=== PATIENT | female | born 1995 | race Caucasian/White ===

== ENCOUNTER 2017-05-03 11:05 | Emergency (ER) | payer MEDICAID ==
[~2017-05-03] VITALS: Ht 157.5 cm; Wt 84.5 kg
[2017-05-03 11:22] VITALS: TEMP 98.3
[2017-05-03] MEDS ORDERED: ZOLOFT 25MG25 MG PO (11:25)
[2017-05-03 13:16] LABS: INFLUENZA A NEGATIVE; INFLUENZA B NEGATIVE
[2017-05-03 13:30] VITALS: BP 112/70; PULSE 99
== END 2017-05-03 13:49 | disposition home or self-care (01) ==
LOC: COL.ER 11:05
PROVIDERS: Emergency Medicine
DX: O99.513 Diseases of the respiratory system complicating pregnancy, third trimester (principal); J06.9 Acute upper respiratory infection, unspecified; Z3A.33 33 weeks gestation of pregnancy

== ENCOUNTER 2017-06-10 14:59 | Outpatient (CLI) | payer MEDICAID ==
[~2017-06-10] VITALS: Ht 157.5 cm; Wt 86.8 kg
[~2017-06-10 14:59] MED LIST: ZOLOFT 25MG25 MG PO
[2017-06-10 15:00] VITALS: BP 112/66; PULSE 125; TEMP 97.5
[2017-06-10 15:20] VITALS: BP 112/66; PULSE 125; TEMP 97.5
[2017-06-10] MEDS ORDERED: PRENATAL MVI (15:25)
[2017-06-10 16:17] VITALS: BP 94/68; PULSE 120
[2017-06-10 17:01] VITALS: BP 102/57; PULSE 74
== END 2017-06-10 17:10 | disposition home or self-care (01) ==
LOC: LDRO 14:59
DX: O62.9 Abnormality of forces of labor, unspecified (principal); Z3A.00 Weeks of gestation of pregnancy not specified

== ENCOUNTER 2017-06-10 22:39 | Inpatient (IN) | payer MEDICAID ==
[~2017-06-10] VITALS: Ht 157.5 cm; Wt 86.8 kg
[~2017-06-10 22:39] MED LIST changes: +PRENATAL MVI
[2017-06-10 23:15] VITALS: BP 112/72; PULSE 97; TEMP 98.1
[2017-06-10 23:56] LABS: BASO % 0.3 % (0.0-2.0); EOS # 0.1 (0.0-0.7); EOS % 0.9 % (0-4.0); GRAN # 8.4 (1.4-6.5); GRAN % 72.5 % (42.2-75.2); HEMATOCRIT 29.6 % (37.0-47.0); HEMOGLOBIN 9.6 g/dl (12.5-16.0); LYMPH # 2.1 (1.2-3.4); LYMPH % 18.5 % (20.0-51.0); MEAN CELL VOLUME 85 fl (80.0-100.0); MEAN CORPUSCULAR HEMOGLOBIN 28 pg (27.0-31.0); MEAN CORPUSCULAR HGB CONC 32 g/dl (33.0-37.0); MEAN PLATELET VOLUME 9.4 fl (7.4-10.4); MONO # 0.8 (0.1-0.6); MONO % 6.8 % (1.7-9.3); PLATELET COUNT 284 K/mm3 (130-400); RED BLOOD COUNT 3.48 M/mm3 (4.10-5.30); REDCELL DISTRIBUTION WIDTH-CV 15.9 % (11.5-14.5)
[2017-06-11] VITALS (23 sets, daily range): BP systolic 81–149; BP diastolic 42–71; PULSE 76–127; TEMP 97.7–98.7
[2017-06-12 06:54] LABS: HEMATOCRIT 26.1 % (37.0-47.0); HEMOGLOBIN 8.4 g/dl (12.5-16.0)
[2017-06-12 08:00] VITALS: BP 101/62; PULSE 73; TEMP 97.9
[2017-06-12] MEDS ORDERED: IBU600 MG PO (09:52)
[2017-06-12] MEDS ORDERED: FERROUSAL325 MG PO (09:52)
[2017-06-12] MEDS ORDERED: PERCOCET 325 MG1 TA2 PO (09:52)
[2017-06-12 13:00] VITALS: BP 85/41; PULSE 73; TEMP 98.2
[2017-06-12 16:55] VITALS: BP 94/47; PULSE 75; TEMP 97.7
[2017-06-12 19:45] VITALS: BP 113/65; PULSE 69; TEMP 98.3
[2017-06-13 06:20] VITALS: BP 108/63; PULSE 73; TEMP 98.8
[2017-06-13] MEDS ORDERED: SENOKOT S 50 MG1 TAB PO (07:32)
== END 2017-06-13 13:10 | disposition home or self-care (01) | DRG 775 ==
LOC: LDRO 22:39 → OB 23:09 → LDR 23:09 → OB 06-11 05:00
PROVIDERS: Obstetrics & Gynecology
PROC: 10E0XZZ Delivery of Products of Conception, External Approach (ICD-10-PCS; principal; 2017-06-11)
PROC: 0KQM0ZZ Repair Perineum Muscle, Open Approach (ICD-10-PCS; 2017-06-11)
DX: O36.0130 Maternal care for anti-D [Rh] antibodies, third trimester, not applicable or unspecified (principal); O99.02 Anemia complicating childbirth; D64.9 Anemia, unspecified; O99.334 Smoking (tobacco) complicating childbirth; F17.210 Nicotine dependence, cigarettes, uncomplicated; O70.1 Second degree perineal laceration during delivery; Z3A.39 39 weeks gestation of pregnancy; Z37.0 Single live birth
CPT/HCPCS: J1200; J2405; J2540; J2590; J2791; J2795; J7120

== ENCOUNTER 2018-04-03 21:08 | Emergency (ER) | payer SELFPAY ==
[~2018-04-03] VITALS: Ht 157.5 cm; Wt 79.5 kg
[~2018-04-03 21:08] MED LIST changes: +FERROUSAL325 MG PO; +IBU600 MG PO; +PERCOCET 325 MG1 TA2 PO; +SENOKOT S 50 MG1 TAB PO
[2018-04-03 21:20] VITALS: BP 141/80; TEMP 98.8
[2018-04-03] MEDS ORDERED: ZOFRAN ODT4 MG PO (21:48)
[2018-04-04 00:12] VITALS: PULSE 90
== END 2018-04-04 00:15 | disposition home or self-care (01) ==
LOC: COL.ER 21:08
DX: A08.4 Viral intestinal infection, unspecified (principal); Z79.1 Long term (current) use of non-steroidal anti-inflammatories (NSAID)
CPT/HCPCS: J2405

== ENCOUNTER 2018-07-08 14:23 | Emergency (ER) | payer SELFPAY ==
[~2018-07-08] VITALS: Ht 157.5 cm; Wt 75.5 kg
[~2018-07-08 14:23] MED LIST changes: +ZOFRAN ODT4 MG PO
[2018-07-08 14:26] VITALS: BP 119/68; TEMP 97
[2018-07-08] MEDS ORDERED: ZYRTEC 10MG10 MG PO (14:35)
[2018-07-08] MEDS ORDERED: PROAIR HFA0.09 MG/AC IH (15:18)
[2018-07-08] MEDS ORDERED: PREDNISONE20 MG PO (15:18)
[2018-07-08 16:01] VITALS: PULSE 101
== END 2018-07-08 16:01 | disposition home or self-care (01) ==
LOC: COL.ER 14:23
DX: J40 Bronchitis, not specified as acute or chronic (principal); F17.210 Nicotine dependence, cigarettes, uncomplicated; Z90.89 Acquired absence of other organs
CPT/HCPCS: J7512

== ENCOUNTER 2018-07-18 11:02 | Emergency (ER) | payer SELFPAY ==
[~2018-07-18] VITALS: Ht 157.5 cm; Wt 75.5 kg
[~2018-07-18 11:02] MED LIST changes: +PREDNISONE20 MG PO; +PROAIR HFA0.09 MG/AC IH; +ZYRTEC 10MG10 MG PO
[2018-07-18 11:26] VITALS: TEMP 98.4
[2018-07-18 12:01] LABS: COLLECTION METHOD CLEAN CATCH
[2018-07-18 12:06] LABS: BASO % 0.2 % (0.0-2.0); EOS % 0.3 % (0-4.0); GRAN # 10.1 (1.4-6.5); HEMATOCRIT 43.6 % (37.0-47.0); HEMOGLOBIN 14.6 g/dl (12.5-16.0); LYMPH # 0.9 (1.2-3.4); LYMPH % 7.9 % (20.0-51.0); MEAN CELL VOLUME 85 fl (80.0-100.0); MEAN CORPUSCULAR HEMOGLOBIN 28 pg (27.0-31.0); MEAN CORPUSCULAR HGB CONC 34 g/dl (33.0-37.0); MEAN PLATELET VOLUME 9.4 fl (7.4-10.4); MONO # 0.6 (0.1-0.6); MONO % 5.1 % (1.7-9.3); PLATELET COUNT 294 K/mm3 (130-400); RED BLOOD COUNT 5.14 M/mm3 (4.10-5.30); REDCELL DISTRIBUTION WIDTH-CV 13.8 % (11.5-14.5)
[2018-07-18 12:09] LABS: MUCOUS Present /lpf; PH 7 (5-8); URINE APPEARANCE Hazy; URINE BACTERIA None Seen /hpf; URINE BILIRUBIN Negative (NEGATIVE); URINE BLOOD Negative (NEGATIVE); URINE COLOR Yellow; URINE GLUCOSE Negative (NEGATIVE); URINE KETONE Negative (NEGATIVE); URINE LEUKOCYTE ESTERASE Trace (NEGATIVE); URINE NITRATE Negative (NEGATIVE); URINE PROTEIN(semi-quant) Negative (NEGATIVE); URINE RBC 0-2 /hpf; URINE UROBILINOGEN Negative (NEGATIVE)
[2018-07-18 12:18] LABS: ALBUMIN 4.1 gm/dL (3.5-5.0); BILIRUBIN,TOTAL 2.6 mg/dL (0.0-1.0); C-REACTIVE PROTEIN 0.5 mg/dL (0.0-0.9); CREATININE, serum 0.63 (0.52-1.25); TOTAL PROTEIN 7.1 gm/dL (6.4-8.2)
[2018-07-18] MEDS ORDERED: ZOFRAN ODT4 MG PO (12:48)
[2018-07-18] MEDS ORDERED: CEPHALEXIN500 M1 PO (12:48)
[2018-07-18 13:00] VITALS: BP 110/62; PULSE 82
== END 2018-07-18 13:03 | disposition home or self-care (01) ==
LOC: COL.ER 11:02
PROVIDERS: Physician Assistant
DX: K52.9 Noninfective gastroenteritis and colitis, unspecified (principal); N39.0 Urinary tract infection, site not specified; F17.210 Nicotine dependence, cigarettes, uncomplicated

== ENCOUNTER 2019-01-09 15:56 | Emergency (ER) | payer SELFPAY ==
[~2019-01-09] VITALS: Ht 157.5 cm; Wt 66.6 kg
[~2019-01-09 15:56] MED LIST changes: +CEPHALEXIN500 M1 PO
[2019-01-09 16:06] VITALS: TEMP 98.3
[2019-01-09] MEDS ORDERED: CLEOCIN HC150 MG/CAP PO (16:37)
[2019-01-09 16:48] VITALS: BP 128/87; PULSE 82
== END 2019-01-09 16:55 | disposition home or self-care (01) ==
LOC: COL.ER 15:56
DX: K02.9 Dental caries, unspecified (principal); F17.210 Nicotine dependence, cigarettes, uncomplicated; Z90.49 Acquired absence of other specified parts of digestive tract

== ENCOUNTER 2019-04-25 21:06 | Emergency (ER) | payer SELFPAY ==
[~2019-04-25] VITALS: Ht 157.5 cm; Wt 65.9 kg
[~2019-04-25 21:06] MED LIST changes: +CLEOCIN HC150 MG/CAP PO
[2019-04-25 21:18] VITALS: BP 128/76; PULSE 86; TEMP 97.9
== END 2019-04-25 21:25 | disposition left against medical advice (07) ==
LOC: COL.ER 21:06
DX: K08.89 Other specified disorders of teeth and supporting structures (principal)

== ENCOUNTER 2023-12-24 08:09 | Inpatient (IN) | payer MEDICAID ==
[~2023-12-24] VITALS: Ht 154.9 cm; Wt 64.9 kg
[~2023-12-24 08:09] MED LIST changes: +AMOXICILLIN 8751 TAB PO; +DIFLUCAN150 MG PO; +NORCO 325 MG-51 TAB PO; +PEN-VEE K500 MG PO; +ROXICODONE 55 MG/TAB PO; +ZOFRAN 4MG T4 MG/TAB PO
[2023-12-24] MEDS ORDERED: NS 1,000 ML IV ONE (09:15)
[2023-12-24 09:29] LABS: BASO % 0.2 % (0.0-2.0); EOS # 0.1 K/mm3 (0.0-0.7); EOS % 0.8 % (0.0-4.0); GRAN # 9.5 K/mm3 (1.4-6.5); HEMATOCRIT 39.1 % (37.0-47.0); HEMOGLOBIN 13.3 g/dl (12.5-16.0); LYMPH # 1.5 K/mm3 (1.2-3.4); LYMPH % 12.9 % (20.0-51.0); MEAN CELL VOLUME 87 fl (80.0-100.0); MEAN CORPUSCULAR HEMOGLOBIN 30 pg (27-31); MEAN CORPUSCULAR HGB CONC 34 g/dl (33.0-37.0); MEAN PLATELET VOLUME 9.9 fl (7.4-10.4); MONO # 0.8 K/mm3 (0.1-0.6); MONO % 6.8 % (1.7-9.3); PLATELET COUNT 262 K/mm3 (130-400); RED BLOOD COUNT 4.49 M/mm3 (4.10-5.30); REDCELL DISTRIBUTION WIDTH-CV 13.1 % (11.5-14.5)
[2023-12-24 09:47] LABS: BILIRUBIN,TOTAL 2.2 mg/dL (0.2-1.2); CALCIUM 9.1 mg/dL (8.4-10.2); CREATININE, serum 0.68 mg/dL (0.57-1.11); TOTAL PROTEIN 6.9 g/dl (6.2-8.1)
[2023-12-24] MEDS ORDERED: Iohexol 300 - 100 ML VIAL IV ONE (10:04)
[2023-12-24] MEDS ORDERED: NS 100 ML IV SCH (10:05)
[2023-12-24] MEDS ORDERED: fentaNYL 50 MCG/ML 2 ML VIAL IV ONE (11:00)
[2023-12-24] MEDS ORDERED: INDERAL 20MG20 MG PO (11:45)
[2023-12-24] MEDS ORDERED: LEXAPRO 10MG10 MG PO (11:46)
[2023-12-24 13:00] VITALS: BP_SYST 97
[2023-12-24] MEDS ORDERED: Morphine 4 MG/ML VIAL IV PRN (13:45)
[2023-12-24] MEDS ORDERED: Ondansetron 4 MG/2 ML VIAL IV PRN (13:45)
[2023-12-24] MEDS ORDERED: Acetaminophen 500 MG TAB PO PRN (13:45)
[2023-12-24] MEDS ORDERED: Polyethylene Glycol 3350 17 GM PDS PO PRN (13:45)
[2023-12-24] MEDS ORDERED: NS 1,000 ML IV SCH (13:45)
--- NOTE | 2023-12-24 13:55 | NUR ---
Vancomycin Initial Dosing Pharmacy Note Ordering provider: Carolyn Lott R., MD Indication/duration: SSTI Relevant comorbidities: LABS: Recommendation: 1.25 GRAMS EVERY 8 HOURS Maintenance dose: 1.25 grams every 8 hours Trough goal: 10-15 ug/mL PHARMACY TO CHECK TROUGH AFTER 4TH DOSE OF REGIMEN
[2023-12-24 13:57] VITALS: BP 97/63; PULSE 72; TEMP 99.2
--- NOTE | 2023-12-24 14:01 | NUR ---
Pt. arrived to the floor. Pt. is A&OX3, assessment complete. IV to lt. ac patent. Pt. reports pain at a 3 on pain scale to face. Noticable swelling noted. Pt. given pain meds per orders. Pt. denies further needs, call light within reach.
[2023-12-24 16:05] VITALS: BP 97/63; PULSE 72; TEMP 99.2
[2023-12-24] MEDS ORDERED: Vancomycin 1.25 GM,Special Dose/Pharmacy Prepared 1.25 GM in NS 250 ML IV SCH (19:00)
[2023-12-24 19:07] VITALS: BP 110/71; PULSE 56; TEMP 98.8
--- NOTE | 2023-12-24 19:50 | NUR ---
Initial shift assessment done- states pain to left side of face /10, getting Morphine IV as ordered, states she feels the swelling is going down- still has just slight swelling to left side of face, especially under the left eye. Using an ice pack on and off. IV fluids of NS at 100cc/hr.
[2023-12-24 20:30] VITALS: BP_SYST 110
[2023-12-25] VITALS (12 sets, daily range): BP systolic 94–115; BP diastolic 58–81; PULSE 65–88; TEMP 98.2–98.9
--- NOTE | 2023-12-25 06:42 | NUR ---
Did sleep fairly well last night, VSS, continues with facial swelling -both sides of face at times, depending what side she was sleeping on,left side face with > edema overall..did get Morphine IV x1 this shift, and Tylenol po x1 this shift for facial pain. IV fluids of NS at 100cc/hr.Using ice packs to face.
[2023-12-25 06:56] LABS: BASO % 0.2 % (0.0-2.0); EOS # 0.1 K/mm3 (0.0-0.7); GRAN % 74.4 % (42.2-75.2); LYMPH # 1.4 K/mm3 (1.2-3.4); LYMPH % 16.6 % (20.0-51.0); MEAN CORPUSCULAR HGB CONC 34 g/dl (33.0-37.0); MEAN PLATELET VOLUME 10.2 fl (7.4-10.4); MONO # 0.6 K/mm3 (0.1-0.6); MONO % 7.6 % (1.7-9.3); PLATELET COUNT 219 K/mm3 (130-400); RED BLOOD COUNT 3.85 M/mm3 (4.10-5.30); REDCELL DISTRIBUTION WIDTH-CV 13.2 % (11.5-14.5)
[2023-12-25 07:07] LABS: HEMATOCRIT 33.3 % (37.0-47.0); HEMOGLOBIN 11.3 g/dl (12.5-16.0); MEAN CELL VOLUME 87 fl (80.0-100.0); MEAN CORPUSCULAR HEMOGLOBIN 29 pg (27-31)
[2023-12-25 07:16] LABS: ANION GAP 7 mmol/L (7-16); CHLORIDE 111 mEq/L (98-107); CREATININE, serum 0.62 mg/dL (0.57-1.11); GLUCOSE 84 mg/dL (70-99); POTASSIUM 3.7 mEq/L (3.5-4.5); SODIUM 139 mEq/L (136-145)
[2023-12-25 07:17] LABS: BLOOD UREA NITROGEN < 5 mg/dL (7-19)
--- NOTE | 2023-12-25 08:00 | NUR ---
PATIENT CALLED FOR PAIN MEDICATION. PATIENT TEARFUL AND COMPLAINING OF PAIN 09/13. REQUESTING IV MORPHINE, STATES THE PAIN IS TOO SEVERE FOR TYLENOL. THIS RN WILL ADMINISTER MORPHINE PER JUN.
[2023-12-25] MEDS ORDERED: Escitalopram 10 MG TAB PO SCH (09:00)
--- NOTE | 2023-12-25 09:00 | NUR ---
PATIENT STATES PAIN IS A LOT BETTER. RATING FACIAL PAIN 2/10.
--- NOTE | 2023-12-25 09:49 | NUR ---
SW met with patient to complete inital assessment for discharge planning. Patient verifies that she lives in [place] with her grandparents and her two childred ages 6 and 7 years old. Patient lists her boyfriend Damien Chaidez ([phone]) as her personal care home administrator. Patient denies having a DPOA and declines to complete one at this time. Patient sees Librado ANTONY as her PCP and uses [facility]. 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 Plan is to return home at discharge. Discharge plan: Home
--- NOTE | 2023-12-25 09:51 | NUR ---
Initial visit; Patient very sweet and somewhat frightened concerning her diagnosis of Cellulitis. Dairy Nutrition Consultant attempted to assure her that she has good Physicians and that we will take good care of her. She said she knows she is in good hands and thanked Dairy Nutrition Consultant for praying for her and offering God's blessings.
--- NOTE | 2023-12-25 12:16 | NUR ---
PATIENT'S FACIAL EDEMA HAS DECREASED SINCE THIS AM. PATIENT'S EYES ARE FULLY OPEN, BUT THERE IS STILL EDEMA TO RIGHT EYE. DENIES PAIN OR DISCOMFORT AT THIS TIME.
[2023-12-25] MEDS ORDERED: dexAMETHasone 4 MG/ML VIAL IV SCH (12:22)
[2023-12-25] MEDS ORDERED: methylPREDNISolone Sod Succ 40 MG/ML VIAL IV SCH (12:30)
[2023-12-26 00:25] VITALS: BP_SYST 94
[2023-12-26 03:36] VITALS: BP 103/63; PULSE 69; TEMP 98.5
[2023-12-26 04:25] VITALS: BP_SYST 103
[2023-12-26 07:04] LABS: BASO % 0.1 % (0.0-2.0); GRAN # 9.2 K/mm3 (1.4-6.5); GRAN % 84.9 % (42.2-75.2); HEMOGLOBIN 11.7 g/dl (12.5-16.0); LYMPH % 9.3 % (20.0-51.0); MEAN CELL VOLUME 85 fl (80.0-100.0); MEAN CORPUSCULAR HEMOGLOBIN 30 pg (27-31); MEAN CORPUSCULAR HGB CONC 35 g/dl (33.0-37.0); MEAN PLATELET VOLUME 10.1 fl (7.4-10.4); MONO # 0.6 K/mm3 (0.1-0.6); MONO % 5.1 % (1.7-9.3); PLATELET COUNT 252 K/mm3 (130-400); RED BLOOD COUNT 3.95 M/mm3 (4.10-5.30)
[2023-12-26 07:05] LABS: HEMATOCRIT 33.7 % (37.0-47.0)
[2023-12-26 07:25] LABS: CALCIUM 8.8 mg/dL (8.4-10.2); CREATININE, serum 0.61 mg/dL (0.57-1.11); POTASSIUM 3.8 mEq/L (3.5-4.5)
[2023-12-26 08:07] VITALS: BP 108/68; PULSE 77; TEMP 98.4
[2023-12-26 09:00] VITALS: BP_SYST 108
[2023-12-26] MEDS ORDERED: CLEOCIN HCL300 MG PO (10:17)
[2023-12-26] MEDS ORDERED: PREDNISONE20 MG PO (10:19)
--- NOTE | 2023-12-26 12:13 | NUR ---
Data: Patient and accepted spiritual care visit offered during Surgical Aides Teacher rounds. They are hoping for a discharge today so they can attend [employer] this evening. Life review. Assessment: Patient feels more confident about her diagnosis than during a previous spiritual care visit. Plan of Care: Surgical Aides Teacher provided supportive listening and prayer. Doctor arrived at end of visit to discuss possible discharge with Patient. Chaplains will remain available as needed/requested while Patient is admitted to this hospital.
--- NOTE | 2023-12-26 15:45 | NUR ---
Patient discharged home with PO antibiotics; discharge information sent home with patient and all questions answered. Patient ambulatory and walked out to personal vehicle with this nurse and her significant other. Patient sent home with all belongings; patient stable upon discharge.
== END 2023-12-26 13:45 | disposition home or self-care (01) | DRG 603 ==
LOC: COL.ER 08:09 → MEDICAL 12:36
PROVIDERS: Family Medicine; ADMIT Internal Medicine
DX: L03.211 Cellulitis of face (principal); K02.9 Dental caries, unspecified; J32.0 Chronic maxillary sinusitis
CPT/HCPCS: G0378; J1100; J1650; J2270; J2543; J3010; J3370; J7030; J7050; Q9967